=== PATIENT | female | born 1980 | race Caucasian/White ===

== ENCOUNTER 2016-10-31 08:42 | Emergency (ER) | payer BC ==
[~2016-10-31] VITALS: Ht 149.9 cm; Wt 39.5 kg
[~2016-10-31 08:42] MED LIST: ADVIL,NUPRIN,M200 MG PO; COUGH SYRUP DM237 ML PO; CRANBERRY TABL1 EACH PO; NAPROSYN500 MG PO; ONE DAILY FOR1 EAC1 PO; OSCILLOCOCCINUM PO
[2016-10-31 10:32] LABS: INTERNAL CONTROL VALID? YES
[2016-10-31 10:42] LABS: ADD MIUA? NO; BILIRUBIN NEGATIVE; BLOOD NEGATIVE; COLOR STRAW ((YELLOW)); GLUCOSE (STRIP) NEGATIVE; KETONES NEGATIVE; LEUKOCYTES NEGATIVE; NITRITE NEGATIVE; PROTEIN (STRIP) NEGATIVE; SPECIFIC GRAVITY 1.006 (1.000-1.030); UCUL ADDED? NO; UROBILINOGEN 0.2 MG/DL (0.2-1.0)
[2016-10-31] MEDS ORDERED: MOBIC7.5 MG PO (10:45)
[2016-10-31] MEDS ORDERED: FLEXERIL10 MG PO (10:45)
[2016-10-31 11:30] VITALS: BP 105/59
== END 2016-10-31 11:31 | disposition home or self-care (01) ==
LOC: EME 08:42
PROVIDERS: Nurse Practitioner Family
DX: M54.5 Low back pain (principal); Z88.2 Allergy status to sulfonamides
CPT/HCPCS: 81003; 84703; 99281; 99283; J1885

== ENCOUNTER 2017-03-16 00:03 | Emergency (ER) | payer BC ==
[~2017-03-16] VITALS: Ht 149.9 cm; Wt 40.9 kg
[~2017-03-16 00:03] MED LIST changes: +FLEXERIL10 MG PO; +MOBIC7.5 MG PO
[2017-03-16 02:50] LABS: HEMATOCRIT 38.2 % (36.0-46.0); MCH 31.1 PG (29.0-34.0); MCHC 33.2 G/DL (30.0-36.0); MCV 93.4 FL (83-99); MEAN PLAT.VOLUME 10.7 uM^3 (9.5-12.4); PLATELET COUNT 166 K/uL (156-360); RBC DIS.WIDTH-SD 37.3 % (39-53); RED BLOOD COUNT 4.09 M/uL (3.80-5.20)
[2017-03-16 02:56] LABS: PROTHROMBIN TIME 11.4 SEC (10.2-12.9)
[2017-03-16 03:00] VITALS: BP 100/61
== END 2017-03-16 03:01 | disposition home or self-care (01) ==
LOC: EME 00:03
PROVIDERS: Physician Assistant
DX: K91.840 Postprocedural hemorrhage of a digestive system organ or structure following a digestive system procedure (principal); Z98.818 Other dental procedure status; F17.200 Nicotine dependence, unspecified, uncomplicated
CPT/HCPCS: 85027; 85610; 99281; 99283

== ENCOUNTER 2017-11-30 18:58 | Emergency (ER) | payer BC ==
[~2017-11-30] VITALS: Ht 147.3 cm; Wt 43.2 kg
[2017-11-30 20:09] LABS: HEMATOCRIT 44.6 % (36.0-46.0); HEMOGLOBIN 15.8 G/DL (11.9-15.5); MCH 31.9 PG (29.0-34.0); MCHC 35.4 G/DL (30.0-36.0); MCV 90.1 FL (83-99); PLATELET COUNT 157 K/uL (156-360); RBC DIS.WIDTH-CV 11.9 % (11.8-14.6); RBC DIS.WIDTH-SD 39.2 % (39-53); RED BLOOD COUNT 4.95 M/uL (3.80-5.20); WHITE BLOOD COUNT 6.2 K/uL (4.1-10.2)
[2017-11-30 20:22] LABS: ALBUMIN 4.7 g/dL (3.2-4.8); CHLORIDE 107 mEq/L (99-109); POTASSIUM 4.6 mEq/L (3.7-5.4); SODIUM 142 mEq/L (136-147)
[2017-11-30 20:24] LABS: GLUCOSE 166 mg/dL (70-99); TOTAL PROTEIN 7.5 g/dL (6.4-8.3)
[2017-11-30 20:26] LABS: TOTAL BILIRUBIN 2.7 mg/dL (0.0-1.0)
[2017-11-30 20:28] LABS: ALKALINE PHOSPHATASE 62 IU/L (3-129); GFR ESTIMATE (CALCULATED) > 59 mL/min/
[2017-11-30 20:29] LABS: UREA NITROGEN (BUN) 17 mg/dL (9-23)
[2017-11-30 20:30] LABS: AST (GOT) 18 IU/L (2-34)
[2017-11-30 20:31] LABS: ALT (GPT) 12 IU/L (3-49)
[2017-11-30 20:38] LABS: QUANTITATIVE HCG < 4.0 MIU/ML
[2017-11-30 21:57] LABS: APPEARANCE CLEAR ((CLEAR)); BILIRUBIN NEGATIVE; BLOOD NEGATIVE; COLOR YELLOW ((YELLOW)); GLUCOSE (STRIP) NEGATIVE; KETONES 5; LEUKOCYTES NEGATIVE; NITRITE NEGATIVE; PROTEIN (STRIP) 30; SPECIFIC GRAVITY 1.053 (1.000-1.030); UCUL ADDED? NO; UROBILINOGEN 0.2 MG/DL (0.2-1.0)
[2017-11-30] MEDS ORDERED: REGLAN10 MG PO (22:50)
[2017-11-30 23:03] VITALS: BP 91/54
== END 2017-11-30 23:04 | disposition home or self-care (01) ==
LOC: EME 18:58
PROVIDERS: Physician Assistant Medical
DX: G43.909 Migraine, unspecified, not intractable, without status migrainosus (principal); R10.84 Generalized abdominal pain; R19.7 Diarrhea, unspecified; R16.1 Splenomegaly, not elsewhere classified; Z88.2 Allergy status to sulfonamides; Z87.891 Personal history of nicotine dependence
CPT/HCPCS: 74177; 80053; 81003; 84702; 85027; 87502; 99281; 99285; J1200; J1885; J2765; J7030